=== PATIENT | male | born 1990 | race Caucasian/White ===

== ENCOUNTER 2016-11-30 21:05 | Emergency (ER) | payer OTHER ==
[2016-11-30 21:22] VITALS: TEMP 98.8
[2016-11-30] MEDS ORDERED: DEXAMETHASONE 10 MG/ML VIAL PO ONE (22:18)
[2016-11-30] MEDS ORDERED: IPRATROPIUM/ALBUTEROL 3 ML DEYVIAL IH ONE (22:18)
--- NOTE | 2016-11-30 22:22 | EDPHY ---
H & P Stated Complaint: chest feels constricted, since this morning, cough Time Seen by Provider: 11/30/16 22:06 HPI/ROS: CHIEF COMPLAINT: "I am short of breath " HISTORY OF PRESENT ILLNESS: 26-year-old male, daily smoker, no history of chronic reactive airway disease, complaining of 1 day of URI symptoms, mild nonproductive cough, wheezing, dyspnea. No trauma. No fever or chills. No headache. No nuchal rigidity. 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 SOCIAL HISTORY: Positive cigarette use PHYSICAL EXAM (Prior to examination, patient consented to physical exam, hands were washed and my usual and customary physical exam procedures followed) 1) GENERAL: Well-developed, well-nourished, alert and oriented. Appears to be in no acute distress. Speaking full sentences with no signs of respiratory distress 2) HEAD: Normocephalic, atraumatic 3) HEENT: Pupils equal, round, reactive to light bilaterally. Sclera anicteric. Nasopharynx, oropharynx, clear, no lesions. Ears bilaterally with normal tympanic membranes. 4) NECK: Full range of motion, no meningeal signs. 5) LUNGS: Bilateral end-expiratory wheeze no retractions no accessory muscle use 6) HEART: Regular rate and rhythm, no murmur, no heave, no gallop. 7) ABDOMEN: No guarding, no rebound, no focal tenderness 8) MUSCULOSKELETAL: Moving all extremities, no focal areas of tenderness, no obvious trauma. No peripheral edema or discoloration. 9) BACK: no visual or palpable abnormality. 10) SKIN: No rash, no petechiae. 11) Psychiatric: Patient is oriented X 3, there is no agitation. DIFFERENTIAL DIAGNOSIS: in no particular order including but limited to pneumothorax, bronchitis, pneumonia, reactive airways disease, pulmonary embolus - Personal History Current Tetanus/Diphtheria Vaccine: Unsure - Medical/Surgical History Hx Asthma: Yes Hx Chronic Respiratory Disease: No Hx Diabetes: No Hx Cardiac Disease: No Hx Renal Disease: No Hx Cirrhosis: No Hx Alcoholism: No Hx HIV/AIDS: No Hx Splenectomy or Spleen Trauma: No Other PMH: PSHx: nose, R arm fracture. PMHx: pediatric exercise induced asthma - Social History Smoking Status: Current every day smoker Constitutional: Initial Vital Signs Temperature (C) 37.1 C 11/30/16 21:17 Heart Rate 104 H 11/30/16 21:17 Respiratory Rate 17 11/30/16 21:17 Blood Pressure 115/78 11/30/16 21:17 O2 Sat (%) 93 11/30/16 21:17 O2 Delivery Mode Room Air Allergies/Adverse Reactions: Penicillins Allergy (Verified 11/30/16 21:17) Home Medications: Medication Instructions Recorded NK [No Known Home Meds] 11/30/16 Medical Decision Making - Diagnostics Imaging Results: Imaging Impressions Chest X-Ray 11/30/16 22:18 Impression: Hyperexpansion, which could be related to airways disease or deep inspiratory effort. ED Course/Re-evaluation: 11:40 p.m.: Re-evaluation, he is feeling "much better ". Auscultated lungs are clear bilaterally. He has influenza testing is currently pending as I do not think he needs to wait emergency department for these results. Plan will be discharged with albuterol meter dose inhaler and spacer. He has received a dose of Decadron in the ER. Given usual and customary respiratory precautions instructions. Given primary care follow-up information. He feels comfortable being discharged. Recommend smoking cessation. - Data Points Laboratory Results: 11/30/16 22:50 Influenza A & B (PCR) Pending Medications Given: Discontinued Medications Albuterol/Ipratropium (Duoneb) 3 ml IH EDNOW ONE Stop: 11/30/16 22:19 Last Admin: 11/30/16 22:41 Dose: 3 ml Dexamethasone (Decadron Injection) 10 mg PO EDNOW ONE Stop: 11/30/16 22:19 Last Admin: 11/30/16 22:57 Dose: Not Given Dexamethasone (Decadron) 8 mg PO EDNOW ONE Stop: 11/30/16 22:34 Last Admin: 11/30/16 22:42 Dose: 8 mg Departure - Departure Disposition: Home, Routine, Self-Care Clinical Impression: Exacerbation of asthma Condition: Good Instructions: Asthma (ED), Albuterol (By mouth) Additional Instructions: . Return to the emergency department immediately for change in breathing habits , change in voice, change in swallowing habits, change in mental status, or any other symptoms that concern you. Referrals: Emil Ackerman MD [Medical Doctor] - 2-3 days, call for appt.
[2016-11-30] MEDS ORDERED: DEXAMETHASONE 4 MG TAB PO ONE (22:33)
[2016-11-30] MEDS ORDERED: ALBUTEROL INH PREPACK MDI TAKEHOME ONE (23:41)
[2016-12-01 00:03] VITALS: BP 110/78; PULSE 88; RESP 16; O2SAT 96
== END 2016-12-01 00:01 | disposition home or self-care (01) ==
DX: J45.901 Unspecified asthma with (acute) exacerbation (principal); F17.200 Nicotine dependence, unspecified, uncomplicated
CPT/HCPCS: J1100